=== PATIENT | female | born 2000 | race African-American/Black ===

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

== ENCOUNTER 2020-04-18 07:55 | Emergency (ER) | payer BC ==
[~2020-04-18] VITALS: Ht 162.6 cm; Wt 66.3 kg
[2020-04-18 08:01] VITALS: BP 116/74
[2020-04-18] MEDS ORDERED: HYDROcodone/APAP 5/325MG 1 TAB TABLET PO ONE (08:15)
[2020-04-18] MEDS ORDERED: IBUP-1673 PO (08:24)
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
== END 2020-04-18 08:35 | disposition home or self-care (01) ==
LOC: ER 08:02
DX: M79.641 Pain in right hand (principal); M25.531 Pain in right wrist; R22.31 Localized swelling, mass and lump, right upper limb; J45.909 Unspecified asthma, uncomplicated; Y08.89XA Assault by other specified means, initial encounter; Y93.89 Activity, other specified; Y92.89 Other specified places as the place of occurrence of the external cause; Y99.8 Other external cause status
CPT/HCPCS: 29125; 73110; 73130; 99284

== ENCOUNTER 2020-08-11 02:56 | Emergency (ER) | payer BC ==
[~2020-08-11] VITALS: Ht 162.6 cm; Wt 66.3 kg
[~2020-08-11 02:56] MED LIST: IBUP-1673 PO
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
[2020-08-11] MEDS ORDERED: IV RINGERS SOLUTION,LACTATED 1,000 ML IV ONE (04:00)
[2020-08-11 04:07] LABS: BASO % 0 % (0-3); EOS # 0.3 x10^3/uL (0.0-0.7); EOS % 4 % (0-3); HEMOGLOBIN 13.4 g/dL (12.0-15.5); LYMPH # 1.4 x10^3/uL (1.0-4.8); LYMPH % 18 % (24-48); MEAN CORPUSCULAR HEMOGLOBIN 28 pg (25-35); MEAN CORPUSCULAR HGB CONC 33 g/dL (31-37); MEAN CORPUSCULAR VOLUME 86 fL (79-100); MONO # 0.5 x10^3/uL (0.0-1.1); MONO % 7 % (0-9); NEUT # 5.7 x10^3uL (1.8-7.7); NEUT % 71 % (31-73); PLATELET COUNT 251 x10^3/uL (140-400); RED BLOOD COUNT 4.77 x10^6/uL (3.50-5.40); RED CELL DISTRIBUTION WIDTH 13.2 % (11.5-14.5); WHITE BLOOD COUNT 7.9 x10^3/uL (4.0-11.0)
--- NOTE | 2020-08-11 04:09 | EKG ---
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
[2020-08-11] MEDS ORDERED: NALOXONE 2 MG/2 ML DISP.SYRIN. ONE (04:11)
[2020-08-11] MEDS ORDERED: MAGNESIUM HYDROXIDE 2,400 MG/30 ML ORAL.SUSP. PO ONE (04:15)
[2020-08-11] MEDS ORDERED: NALOXONE 2 MG/2 ML DISP.SYRIN. IV ONE (04:30)
--- NOTE | 2020-08-11 04:54 | RAD ---
PA and lateral chest x-rays HISTORY: Chest pain. FINDINGS: Heart size is normal. Mediastinal silhouette is normal. No pneumothorax, pulmonary opacitie s or pleural effusions. Thoracolumbar scoliosis. IMPRESSION: No acute process. Electronically signed by: Ashwin Nunez MD (08/11/2020 4:52 AM) [facility]
[2020-08-11 05:08] LABS: BILIRUBIN,URINE NEG (NEG); CLARITY,URINE CLEAR; COLOR,URINE YELLOW; GLUCOSE,URINE 500 mg/dL (NEG); NITRITE,URINE NEG (NEG); UROBILINOGEN,URINE 0.2 mg/dL (0.2 mg/dL)
[2020-08-11 05:09] LABS: BACTERIA,URINE 0 /HPF (0-FEW); RBC,URINE 0 /HPF (0-2); SQUAMOUS EPITHELIAL CELL,UR OCC /LPF; WBC,URINE OCC /HPF (0-4)
[2020-08-11 05:16] LABS: CALCIUM 8.5 mg/dL (8.5-10.1); GFR 85.5; POTASSIUM 4.5 mmol/L (3.5-5.1)
[2020-08-11 05:16] LABS: BARBITURATES NEG (NEG); BENZODIAZEPINES POS (NEG); CANNABINOIDS POS (NEG); COCAINE POS (NEG); METHADONE NEG (NEG); OPIATES NEG (NEG); PHENCYCLIDINE NEG (NEG)
[2020-08-11 05:18] LABS: AMPHETAMINE/METHAMPHETAMINE POS (NEG)
[2020-08-11 05:50] VITALS: BP 105/68
--- NOTE | 2020-08-11 14:20 | EKG ---
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
== END 2020-08-11 06:05 | disposition home or self-care (01) ==
LOC: ER 02:56
DX: T40.601A Poisoning by unspecified narcotics, accidental (unintentional), initial encounter (principal); F15.10 Other stimulant abuse, uncomplicated; F12.10 Cannabis abuse, uncomplicated; F14.10 Cocaine abuse, uncomplicated; J96.90 Respiratory failure, unspecified, unspecified whether with hypoxia or hypercapnia; F41.9 Anxiety disorder, unspecified; J45.909 Unspecified asthma, uncomplicated; Y92.89 Other specified places as the place of occurrence of the external cause
CPT/HCPCS: 36415; 71046; 80048; 80307; 81001; 81025; 83735; 84484; 85025; 93005; 96361; 96374; 99285; G0480; J2310; J7120